=== PATIENT | male | born 1990 | race African-American/Black ===

== ENCOUNTER 2021-08-05 04:32 | Emergency (ER) | payer MEDICAID ==
[~2021-08-05] VITALS: Ht 177.8 cm; Wt 74.8 kg
[2021-08-05 05:02] VITALS: BP 132/80
--- NOTE | 2021-08-05 05:10 | NUR ---
bibra from the [facility] asleep and wouldnt leave +etoh. patient alert and oriented x2 placed in bed 18.
--- NOTE | 2021-08-05 05:43 | NUR ---
COVID ANTIGEN SWAB COLLECTED AND SENT TO LAB
--- NOTE | 2021-08-05 05:47 | NUR ---
PROVIDED PT WITH URINAL & URINE CUP. PT NOT ABLE TO URINATE AT THIS TIME. WILL F/U & TRY AGAIN LATER.
[2021-08-05 06:37] LABS: BASOPHILS % (AUTO) 0.8 % (0.0-2.0); EOSINOPHILS % (AUTO) 0.4 % (0.0-6.0); HEMATOCRIT 41 % (39-51); HEMOGLOBIN 13.3 g/dL (13.5-17.5); LYMPHOCYTES # (AUTO) 1.4 K/uL (0.8-4.8); LYMPHOCYTES % (AUTO) 23.8 % (20.0-44.0); MEAN CORPUSCULAR HGB CONC 33 g/dl (31.0-36.0); MEAN CORPUSCULAR VOLUME 94 fL (80-96); MONOCYTES # (AUTO) 0.4 K/uL (0.1-1.30); MONOCYTES % (AUTO) 7.1 % (2.0-12.0); NEUTROPHILS % (AUTO) 67.9 % (43.0-81.0); PLATELET COUNT (AUTO) 234 K/uL (150-450); RED BLOOD CELL COUNT(AUTO) 4.33 MIL/uL (4.5-6.0); WHITE BLOOD COUNT (AUTO) 5.8 K/uL (4.3-11.0)
[2021-08-05 08:15] LABS: ALBUMIN 4.3 g/dL (3.4-5.0); BILIRUBIN,DIRECT 0.1 mg/dL (0.0-0.2); BILIRUBIN,TOTAL 0.4 mg/dL (0.2-1.0); CALCIUM, SERUM 8.9 mg/dL (8.5-10.1); CREATININE 0.7 mg/dL (0.6-1.3); POTASSIUM 3.4 mmol/L (3.5-5.1); TOTAL PROTEIN, SERUM 8.3 g/dL (6.4-8.2)
--- NOTE | 2021-08-05 08:23 | NUR ---
BREAKFAST PROVIDED, TOLERATED WELL
--- NOTE | 2021-08-05 09:53 | NUR ---
URINE COLLECTED AND SENT TO LAB
[2021-08-05 12:16] LABS: BILIRUBIN,URINE NEGATIVE (NEGATIVE); COLOR,URINE YELLOW (YELLOW); LEUKOCYTE ESTERASE ,URINE NEGATIVE (NEGATIVE); NITRITE, URINE NEGATIVE (NEGATIVE); PH,URINE 6.5 (5.0-8.0); PROTEIN,URINE TRACE mg/dl (NEGATIVE); UGLUCOSE NEGATIVE (NEGATIVE); UROBILINOGEN,URINE 0.2 EU/dL (0.2)
--- NOTE | 2021-08-05 12:17 | NUR ---
FAXED CLINICALS TO [facility].
[2021-08-05 12:30] LABS: BACTERIA,URINE None seen /HPF (None Seen); RBC,URINE NONE SEEN /HPF (0-2); SQUAMOUS EPITHELIAL CELL,UR Rare /HPF (None Seen); WBC,URINE 0-2 /HPF (0-3)
--- NOTE | 2021-08-05 15:37 | NUR ---
PT WILL BE GOING TO [facility]ET. PER BRONWYN
--- NOTE | 2021-08-05 16:54 | NUR ---
CALLED [facility] STILL AWAITING FEEDBACK FORM SUP.
--- NOTE | 2021-08-06 00:19 | NUR ---
PT DENIES S/I & ELOPED. NOTIFIED [facility] FROM [facility].
== END 2021-08-06 00:30 | disposition left against medical advice (07) ==
LOC: ER 04:41
DX: R45.851 Suicidal ideations (principal); F10.129 Alcohol abuse with intoxication, unspecified; Y90.7 Blood alcohol level of 200-239 mg/100 ml; Z20.822 Contact with and (suspected) exposure to COVID-19; Z53.29 Procedure and treatment not carried out because of patient's decision for other reasons; Z59.00 Homelessness unspecified
CPT/HCPCS: 36415; 80048; 80076; 80143; 80307; 80320; 81001; 85025; 87426; 99285; C9803; G0480